=== PATIENT | male | born 1970 | race Caucasian/White ===

== ENCOUNTER 2017-01-05 13:51 | Emergency (ER) | payer OTHER ==
[~2017-01-05] VITALS: Wt 83.0 kg
[~2017-01-05 13:51] MED LIST: CYCL-319 PO
[2017-01-05] MEDS ORDERED: ACETAMINOPHEN 500 MG TAB PO STA (14:47)
[2017-01-05] MEDS ORDERED: IBUP-1542 PO (14:50)
[2017-01-05] MEDS ORDERED: D-ME473S2 PO (14:50)
--- NOTE | 2017-01-05 14:52 | ERD ---
ER Documentation Chief Complaint Chief Complaint FEVER X 1 DAY HPI This 46-year-old male presents with a one-day history of fever and cough. There is no history of vomiting or abdominal pain, diarrhea, neck stiffness, rashes. ROS All systems reviewed and are negative except as per history of present illness. Medications Home Meds Active Scripts Dextromethorphan Hb-Promethazine Hcl* (Promethazine DM* Syrup) 473 Ml Syrup, 5 ML PO Q6 Y for COUGH for 4 Days, ML Prov:MOON SMITH MD 01/05/17 Ibuprofen* (Motrin*) 600 Mg Tab, 600 MG PO Q6, #15 TAB Prov:MOON SMITH MD 01/05/17 Cyclobenzaprine Hcl* (Cyclobenzaprine Hcl*) 10 Mg Tablet, 10 MG PO TID, #15 TAB Prov:LYNDA ROB NP 03/10/15 Allergies Allergies: Coded Allergies: No Known Drug Allergies (Verified Allergy, Unknown, 03/09/15) PMhx/Soc History of Surgery: Yes (appendectomy) Anesthesia Reaction: No Hx Neurological Disorder: Yes (seizure) Hx Respiratory Disorders: No Hx Cardiac Disorders: No Hx Psychiatric Problems: No Hx Miscellaneous Medical Probl: No Hx Alcohol Use: No Hx Substance Use: No Hx Tobacco Use: No Smoking Status: Never smoker Physical Exam Vitals Vital Signs Date Time Temp Pulse Resp B/P Pulse Ox O2 Delivery O2 Flow Rate FiO2 01/05/17 13:54 98.9 89 18 124/72 99 Physical Exam Const: [], [id number], eating a banana. Head: Atraumatic Eyes: Normal Conjunctiva ENT: Normal External Ears, Nose and Mouth. TMs and oropharynx normal. Neck: Full range of motion..~ No meningismus. Resp: Clear to auscultation bilaterally. No rales or wheezing appreciated. Cardio: Regular rate and rhythm, no murmurs Abd: Soft, non tender, non distended. Normal bowel sounds Skin: No petechiae or rashes Back: No midline or flank tenderness Ext: No cyanosis, or edema Neur: Awake and alert Psych: Normal Mood and Affect Results 24 hrs Current Medications Medications (Trade) Dose Ordered Sig/Idris Route PRN Reason Start Time Stop Time Status Last Admin Dose Admin Acetaminophen (Tylenol Tab) 500 mg ONCE STAT PO 01/05/17 14:47 01/05/17 14:48 DC Procedures/MDM Presents with a one-day history of URI symptoms and essentially normal exam. Likely has a viral URI. Will treat with promethazine DM and ibuprofen and primary care follow-up and return precautions. The patient was stable with no new complaints during the ER course. Clinically, there is no current evidence to suggest meningitis, sepsis, acute abdomen, pneumonia, acute coronary syndrome , pulmonary embolism, or any other emergent condition appearing to require further evaluation or hospitalization. The patient should certainly return for any new or worsening symptoms per the aftercare instructions. They should otherwise follow-up with her primary care doctor for reevaluation this week. Departure Diagnosis: Primary Impression: Upper respiratory infection URI type: unspecified URI Qualified Code: J06.9 - Upper respiratory tract infection, unspecified type Condition: Stable Patient Instructions: Uri, Viral, No Abx (Adult) Additional Instructions: probablamente un virus que dura 2-4 valles. cheque otro demarco el proximo storm para mas simptomas- vomito, dolor, rashad, problemas con respirando, o con dietrich doctor primario. MOON SMITH MD Jan 05, 2017 14:52
== END 2017-01-05 15:03 | disposition home or self-care (01) ==
LOC: FTE 13:51
DX: J06.9 Acute upper respiratory infection, unspecified (principal)
CPT/HCPCS: Z7502; Z7610; 99283

== ENCOUNTER 2018-02-06 03:20 | Emergency (ER) | END 2018-02-06 05:28 | disposition home or self-care (01) ==

== ENCOUNTER 2018-03-24 00:33 | Emergency (ER) | payer OTHER ==
[~2018-03-24] VITALS: Ht 167.6 cm; Wt 81.8 kg
[~2018-03-24 00:33] MED LIST changes: -CYCL-319 PO; +CYCL10TA7 PO; +D-ME473S2 PO; +IBUP-1542 PO
[2018-03-24 00:36] VITALS: Ht 167.6 cm; Wt 81.8 kg
[2018-03-24] MEDS ORDERED: SOD CHLORIDE 0.9% 500 ML IV STA (01:09)
[2018-03-24] MEDS ORDERED: LEVETIRACETAM 1000 MG (PMX) 100 ML IVPB STA (01:09)
--- NOTE | 2018-03-24 01:56 | ERD ---
ER Documentation Chief Complaint Chief Complaint REGINA RACarter from home,sz,hx sz, on trileptal & Keppra HPI 48-year-old male brought in by rescue f from his domicile for a seizure. History of seizures. 1 minute tonic-clonic activity with no tongue biting no incontinence. Upon arrival patient lethargic but arousable and answers ques tions appropriately. His last breakthrough seizure was 6 months ago. ROS All systems reviewed and are negative except as per history of present illness. Medications Home Meds Active Scripts Dextromethorphan Hb-Promethazine Hcl* (Promethazine DM* Syrup) 473 Ml Syrup, 5 ML PO Q6 PRN for COUGH for 4 Days, ML Prov:MOON SMITH MD 01/05/17 Ibuprofen* (Motrin*) 600 Mg Tab, 600 MG PO Q6, #15 TAB Prov:MOON SMITH MD 01/05/17 Cyclobenzaprine Hcl* (Cyclobenzaprine Hcl*) 10 Mg Tablet, 10 MG PO TID, #15 TAB Prov:LYNDA ROB NP 03/10/15 Allergies Allergies: Coded Allergies: No Known Drug Allergies (Verified Allergy, Unknown, 03/09/15) PMhx/Soc History of Surgery: Yes (appendectomy) Anesthesia Reaction: No Hx Neurological Disorder: Yes (seizure) Hx Respiratory Disorders: No Hx Cardiac Disorders: No Hx Miscellaneous Medical Probl: No Hx Alcohol Use: No Hx Substance Use: No Hx Tobacco Use: No Physical Exam Vitals Vital Signs Date Temp Pulse Resp B/P (MAP) Pulse Ox O2 O2 Flow FiO2 Time Delivery Rate 03/24/18 98.2 93 18 123/65 95 00:36 (84) Physical Exam Const: No acute distress Head: Atraumatic Eyes: Normal Conjunctiva ENT: Normal External Ears, Nose and Mouth. Neck: Full range of motion. No meningismus. Resp: Clear to auscultation bilaterally Cardio: Regular rate and rhythm, no murmurs Abd: Soft, non tender, non distended. Normal bowel sounds Skin: No petechiae or rashes Back: No midline or flank tenderness Ext: No cyanosis, or edema Neur: Awake and alert Psych: Normal Mood and Affect Result Diagram: 03/24/18 0132 Results 24 hrs Laboratory Tests Test 03/24/18 01:30 03/24/18 01:32 Bedside Glucose 101 mg/dL White Blood Count 7.1 10^3/ul Red Blood Count 3.96 10^6/ul Hemoglobin 12.3 g/dl Hematocrit 35.6 % Mean Corpuscular Volume 89.9 fl Mean Corpuscular Hemoglobin 31.1 pg Mean Corpuscular Hemoglobin Concent 34.6 g/dl Red Cell Distribution Width 11.9 % Platelet Count 297 10^3/UL Mean Platelet Volume 8.7 fl Immature Granulocytes % 0.100 % Neutrophils % 74.4 % Lymphocytes % 12.8 % Monocytes % 8.8 % Eosinophils % 3.5 % Basophils % 0.4 % Nucleated Red Blood Cells % 0.0 /100WBC Immature Granulocytes # 0.010 10^3/ul Neutrophils # 5.3 10^3/ul Lymphocytes # 0.9 10^3/ul Monocytes # 0.6 10^3/ul Eosinophils # 0.3 10^3/ul Basophils # 0.0 10^3/ul Nucleated Red Blood Cells # 0.0 10^3/ul Current Medications Medications Dose Sig/Idris Start Time Status Last (Trade) Ordered Route PRN Stop Time Admin Dose Reason Admin Sodium 500 ml @ Q1H STAT 03/24/18 03/24/18 Chloride 500 mls/hr IV 01:09 01:39 03/24/18 02:08 100 ml @ ONCE STAT 03/24/18 DC 03/24/18 Levetiracetam 400 mls/hr IVPB 01:09 01:39 03/24/18 01:23 Procedures/MDM Medical decision makin-year-old male recurrent seizure disorder. Given Her here intravenously. Stable for outpatient management. Advised to follow-up with primary care physician. Return for any seizure-like activity via 911. Departure Diagnosis: Primary Impression: Seizure disorder Condition: Stable SAMSON KELLY Mar 24, 2018 01:56
[2018-03-24] MEDS ORDERED: IBUP-1542 PO (04:46)
[2018-03-24] MEDS ORDERED: FAMO-142 PO (05:05)
[2018-03-24] MEDS ORDERED: LEVE10006 PO (05:05)
[2018-03-24] MEDS ORDERED: OXCA600T30 PO (05:05)
[2018-03-24] MEDS: SOD CHLORIDE 0.9% 2,000 ML IV SCH ×2 (06:07→07:49)
[2018-03-24] MEDS ORDERED: SOD CHLORIDE 0.9% 1,000 ML IV STA (06:33)
[2018-03-24 07:49] VITALS: BP 111/60; PULSE 89; RESP 18
== END 2018-03-24 07:53 | disposition home or self-care (01) ==
LOC: E/R 00:33
DX: G40.909 Epilepsy, unspecified, not intractable, without status epilepticus (principal); R40.2122 Coma scale, eyes open, to pain, at arrival to emergency department; R40.2352 Coma scale, best motor response, localizes pain, at arrival to emergency department; R40.2232 Coma scale, best verbal response, inappropriate words, at arrival to emergency department
CPT/HCPCS: 36415; 70450; 80048; 82962; 85025; 96365; 96366; J1953; J7030; J7040; Z7502

== ENCOUNTER 2018-06-06 02:27 | Inpatient (IN) | payer OTHER ==
[~2018-06-06] VITALS: Ht 165.1 cm; Wt 80.2 kg
[~2018-06-06 02:27] MED LIST changes: +FAMO-142 PO; +LEVE10006 PO; +LORAZEPAM 2 MG INJ ONE; +OXCA600T30 PO
[2018-06-06] MEDS ORDERED: LORAZEPAM 2 MG INJ ONE (02:32)
[2018-06-06] MEDS ORDERED: LEVETIRACETAM 1000 MG (PMX) 100 ML IVPB ONE (03:00)
[2018-06-06] MEDS ORDERED: LORAZEPAM 2 MG INJ IV ONE ×2 (03:00)
[2018-06-06] MEDS ORDERED: LORAZEPAM 2 MG INJ IM ONE (03:00)
[2018-06-06] MEDS ORDERED: PIPER-TAZO 3.375 GM IV (PMX) 100 ML IVPB ONE (05:30)
[2018-06-06] MEDS ORDERED: ONDANSETRON 4 MG INJ IV PRN (06:00)
[2018-06-06] MEDS ORDERED: NACL 0.9% 3 ML SYG IV SCH (06:00)
[2018-06-06] MEDS ORDERED: ACETAMINOPHEN 325 MG TAB PO PRN (06:00)
[2018-06-06] MEDS ORDERED: LORAZEPAM 2 MG INJ IV PRN (06:00)
[2018-06-06] MEDS ORDERED: AMPICILLIN/SULB 3 GM/NS (PMX) 100 ML IVPB SCH (06:00)
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
[2018-06-06] MEDS: SOD CHLORIDE 0.9% 1,000 ML IV SCH ×2 (06:23→18:03)
[2018-06-06] MEDS: OXCARBAZEPINE 300 MG TAB PO SCH ×2 (09:00→23:21)
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
[2018-06-06] MEDS: AMPICILLIN/SULB 3 GM/NS (PMX) 100 ML IVPB SCH ×3 (11:25→23:21)
[2018-06-06 12:26] VITALS: BP 126/65; PULSE 66; RESP 18
[2018-06-06 12:30] VITALS: PULSE 62
[2018-06-06 13:24] VITALS: Ht 165.1 cm; Wt 80.2 kg
[2018-06-06] MEDS ORDERED: LEVETIRACETAM 1000 MG (PMX) 100 ML IVPB SCH (14:00)
[2018-06-06 15:21] VITALS: BP 104/60; PULSE 67; RESP 19
[2018-06-06 16:01] VITALS: PULSE 85
[2018-06-06 19:10] VITALS: BP 108/66; PULSE 64; RESP 19
[2018-06-06 20:00] VITALS: PULSE 67
[2018-06-06] MEDS: LEVETIRACETAM 750 MG TAB PO SCH (20:57)
[2018-06-07] VITALS (12 sets, daily range): BP systolic 95–123; BP diastolic 56–65; PULSE 43–79; RESP 18–19
[2018-06-07] MEDS: AMPICILLIN/SULB 3 GM/NS (PMX) 100 ML IVPB SCH ×3 (05:51→18:23)
[2018-06-07] MEDS: LEVETIRACETAM 750 MG TAB PO SCH ×2 (08:57→20:49)
[2018-06-07] MEDS: OXCARBAZEPINE 300 MG TAB PO SCH ×2 (08:57→20:38)
[2018-06-07] MEDS ORDERED: POTASSIUM CHLORIDE (SR) 20 MEQ TAB PO STA (10:00)
--- NOTE | 2018-06-07 10:07 | CONS ---
Assessment/Plan Assessment/Plan Hospital Course 48 M c/ reported Hx of epilepsy and depression, who is admitted following a generalized convulsion. Patient reports medication compliance and denies recent ETOH use.. Head CT is without obvious acute intracranial pathology...though most notable for presumed shrapnel and an arachnoid cyst.. CXR is suspicious for possible aspiration pneumonia.. UA/UDS neg Na/Ca/Gluc/Mg/phos OK Keppra and Trileptal levels are in process to corroborate medication compliance.. P: Continue Trileptal per ops for now; continue increased Keppra, 1.5g po bid. inde finitely Ativan iv prn prolonged seizure or cluster PT/OT/ST as necessary Other management and supportive care per primary Will follow clinically Consultation Date/Type/Reason Admit Date/Time Jun 06, 2018 at 05:23 Type of Consult Neurology Reason for Consultation seizure Requesting Provider: CHARLIE LOCK Date/Time of Note DATE: 06/07/18 TIME: 10:05 24 HR Interval Summary Free Text/Dictation Continues acute care Exam Vital Signs Vitals Vital Signs Date Temp Pulse Resp B/P (MAP) Pulse Ox O2 O2 Flow FiO2 Time Delivery Rate 06/07/18 98.4 78 18 101/56 96 07:33 (71) 06/06/18 Room Air 11:44 Nasal Cannula 06/06/18 3.0 06:23 Intake and Output 06/06/18 06/06/18 06/07/18 1414:59 22:59 06:59 IntakeIntake Total 500 ml OutputOutput Total 900 ml 800 ml BalanceBalance -900 ml -300 ml Exam PE: Gen Appearance: No Apparent Distress HEENT: Normocephalic Cardiovascular: Regular rate Abdomen: Soft Extremities: Dry NE: The patient was alert and oriented. Language was normal. Fund of knowledge was normal. Pupils were equal and reactive to light. There was no afferent pupillary defect. Visual jacob were normal. Funduscopic examination was limited. Extra-ocular movements were full. Ptosis was absent. There was no nystagmus. Facial sensation was normal. Face was symmetric with normal strength. Hearing was intact. Palate movements were normal. Neck strength was normal. There was normal tongue bulk and speed of movement. Tone was normal. Muscle bulk was normal. I did not see fasciculations. Arms and legs were strong. Vibration sensation was normal. Temperature and pinprick sensation was normal. Rapid alternating movements were normal. There was no dysmetria. There was no intention tremor. Gait was deferred due to bedrest. Arm and leg reflexes were 2+ and symmetric. Metcalf's sign was absent. Plantar responses were flexor. NOLA BOSWELL Jun 07, 2018 10:07
--- NOTE | 2018-06-07 10:15 | PN ---
Date/Time of Note Date/Time of Note DATE: 06/07/18 TIME: 10:13 Assessment/Plan VTE Prophylaxis Risk score (from Ns)>0 risk: 3 SCD applied (from Ns): Yes Pharmacological prophylaxis: heparin Lines/Catheters IV Catheter Type (from [facility]): Saline Lock Urinary Cath still in place: No Assessment/Plan Problems: (1) Recurrent seizures Onset Date: ~ 06/2010 Status: Chronic Comment: Patient is back on medication therapy and since he has been receiving her in the hospital no further seizures in a short timeframe. Appreciate neurology input. Due to the aspiration pneumonia he will be here at least 1 more day (2) Aspiration pneumonia Status: Acute Comment: Abnormal chest x-ray. He has not had fevers and his white blood cell count is holding on the antibiotics. We will give 1 dose of azithromycin to help hold him over Qualifiers: Aspiration pneumonia type: unspecified Laterality: left Lung location: upper lobe of lung Qualified Codes: J69.0 - Pneumonitis due to inhalation of food and vomit Result Diagram: 06/07/18 0504 06/07/18 0504 Results 24hrs Laboratory Tests Test 06/06/18 16:30 06/07/18 05:04 Urine Color STRAW Urine Clarity CLEAR Urine pH 7.0 Urine Specific [place] 1.010 Urine Ketones NEGATIVE Urine Nitrite NEGATIVE Urine Bilirubin NEGATIVE Urine Urobilinogen NEGATIVE Urine Leukocyte Esterase NEGATIVE Urine Hemoglobin NEGATIVE Urine Glucose NEGATIVE Urine Total Protein NEGATIVE White Blood Count 5.3 # Red Blood Count 4.32 L Hemoglobin 13.3 L Hematocrit 38.0 L Mean Corpuscular Volume 88.0 Mean Corpuscular Hemoglobin 30.8 Mean Corpuscular Hemoglobin Concent 35.0 Red Cell Distribution Width 13.1 Platelet Count 186 Mean Platelet Volume 9.7 Immature Granulocytes % 0.200 Neutrophils % 51.8 Lymphocytes % 38.5 Monocytes % 8.0 Eosinophils % 1.1 Basophils % 0.4 Nucleated Red Blood Cells % 0.0 Immature Granulocytes # 0.010 Neutrophils # 2.7 Lymphocytes # 2.0 Monocytes # 0.4 Eosinophils # 0.1 Basophils # 0.0 Nucleated Red Blood Cells # 0.0 Sodium Level 141 Potassium Level 3.4 L Chloride Level 108 Carbon Dioxide Level 25 # Anion Gap 8 # Blood Urea Nitrogen 10 Creatinine 0.71 Est Glomerular Filtrat Rate mL/min > 60 Glucose Level 89 Hemoglobin A1c 4.9 Calcium Level 8.6 Magnesium Level 2.1 Total Bilirubin 0.4 Direct Bilirubin 0.00 Indirect Bilirubin 0.4 Aspartate Amino Transf (AST/SGOT) 20 Alanine Aminotransferase (ALT/SGPT) 20 Alkaline Phosphatase 70 Total Protein 6.6 Albumin 3.6 Globulin 3.00 Albumin/Globulin Ratio 1.20 Triglycerides Level 87 Cholesterol Level 163 LDL Cholesterol, Calculated 94 HDL Cholesterol 52 Cholesterol/HDL Ratio 3.1 Thyroid Stimulating Hormone (TSH) 1.670 Subjective 24 Hr Interval Summary Free Text/Dictation Patient had another seizure in the emergency room before coming up to the floor and was postictal. At this time he reports he is doing well denies any cough wheezing shortness of breath or fevers Constitutional: no complaints Respiratory: no complaints Cardiovascular: no complaints Gastrointestinal: no complaints Exam/Review of Systems Exam Vitals Vital Signs Date Temp Pulse Resp B/P (MAP) Pulse Ox O2 O2 Flow FiO2 Time Delivery Rate 06/07/18 52 08:01 06/07/18 98.4 18 101/56 96 07:33 (71) 06/06/18 Room Air 11:44 Nasal Cannula 06/06/18 3.0 06:23 Intake and Output 06/06/18 06/06/18 06/07/18 1515:00 23:00 07:00 IntakeIntake Total 500 ml OutputOutput Total 900 ml 800 ml BalanceBalance -900 ml -300 ml Constitutional: alert, oriented Respiratory: clear to auscultation, normal air movement Cardiovascular: regular rate and rhythm, nl pulses Gastrointestinal: soft, nl liver, spleen, non-tender Results Results 24hrs Laboratory Tests Test 06/06/18 16:30 06/07/18 05:04 Urine Color STRAW Urine Clarity CLEAR Urine pH 7.0 Urine Specific [place] 1.010 Urine Ketones NEGATIVE Urine Nitrite NEGATIVE Urine Bilirubin NEGATIVE Urine Urobilinogen NEGATIVE Urine Leukocyte Esterase NEGATIVE Urine Hemoglobin NEGATIVE Urine Glucose NEGATIVE Urine Total Protein NEGATIVE White Blood Count 5.3 # Red Blood Count 4.32 L Hemoglobin 13.3 L Hematocrit 38.0 L Mean Corpuscular Volume 88.0 Mean Corpuscular Hemoglobin 30.8 Mean Corpuscular Hemoglobin Concent 35.0 Red Cell Distribution Width 13.1 Platelet Count 186 Mean Platelet Volume 9.7 Immature Granulocytes % 0.200 Neutrophils % 51.8 Lymphocytes % 38.5 Monocytes % 8.0 Eosinophils % 1.1 Basophils % 0.4 Nucleated Red Blood Cells % 0.0 Immature Granulocytes # 0.010 Neutrophils # 2.7 Lymphocytes # 2.0 Monocytes # 0.4 Eosinophils # 0.1 Basophils # 0.0 Nucleated Red Blood Cells # 0.0 Sodium Level 141 Potassium Level 3.4 L Chloride Level 108 Carbon Dioxide Level 25 # Anion Gap 8 # Blood Urea Nitrogen 10 Creatinine 0.71 Est Glomerular Filtrat Rate mL/min > 60 Glucose Level 89 Hemoglobin A1c 4.9 Calcium Level 8.6 Magnesium Level 2.1 Total Bilirubin 0.4 Direct Bilirubin 0.00 Indirect Bilirubin 0.4 Aspartate Amino Transf (AST/SGOT) 20 Alanine Aminotransferase (ALT/SGPT) 20 Alkaline Phosphatase 70 Total Protein 6.6 Albumin 3.6 Globulin 3.00 Albumin/Globulin Ratio 1.20 Triglycerides Level 87 Cholesterol Level 163 LDL Cholesterol, Calculated 94 HDL Cholesterol 52 Cholesterol/HDL Ratio 3.1 Thyroid Stimulating Hormone (TSH) 1.670 Medications Medication Current Medications Oxcarbazepine (Trileptal) 600 mg BID PO Last administered on 06/07/18at 08:57; Admin Dose 600 MG; Start 06/06/18 at 09:00 Lorazepam (Ativan) 2 mg Q2H PRN IV SEIZURES; Start 06/06/18 at 06:00 Sodium Chloride 1,000 ml @ 70 mls/hr [id number] IV Last administered on 06/06/18at 18:03; Admin Dose 70 MLS/HR; Start 06/06/18 at 05:45 IV Flush (NS 3 ml) 3 ml PER PROTOCOL IV ; Start 06/06/18 at 06:00 Ondansetron HCl (Zofran Inj) 4 mg Q6H PRN IV NAUSEA/VOMITING; Start 06/06/18 at 06:00 Acetaminophen (Tylenol Tab) 650 mg Q6H PRN PO .PAIN 1-3 OR TEMP; Start 06/06/18 at 06:00 Ampicillin Sodium/ Sulbactam Sodium 100 ml @ 100 mls/hr Q6 IVPB Last administered on 06/07/18at 05:51; Admin Dose 100 MLS/HR; Start 06/06/18 at 12:00 Levetiracetam (Keppra) 1,500 mg BID PO Last administered on 06/07/18at 08:57; Admin Dose 1,500 MG; Start 06/06/18 at 21:00 OVI SHARPE MD Jun 07, 2018 10:15
[2018-06-07] MEDS ORDERED: AZITHROMYCIN 500 MG TAB PO ONE (10:30)
[2018-06-07] MEDS: SOD CHLORIDE 0.9% 1,000 ML IV SCH (16:06)
[2018-06-08] MEDS: SOD CHLORIDE 0.9% 1,000 ML IV SCH ×4 (00:39→23:25)
[2018-06-08] MEDS: AMPICILLIN/SULB 3 GM/NS (PMX) 100 ML IVPB SCH ×3 (01:15→12:19)
[2018-06-08 08:03] VITALS: BP 101/59; PULSE 58; RESP 18
[2018-06-08] MEDS: LEVETIRACETAM 750 MG TAB PO SCH ×2 (08:44→21:14)
[2018-06-08] MEDS: OXCARBAZEPINE 300 MG TAB PO SCH ×2 (08:45→21:14)
--- NOTE | 2018-06-08 12:33 | CONS ---
Assessment/Plan Assessment/Plan Hospital Course 48 M c/ reported Hx of epilepsy and depression, who is admitted following a generalized convulsion. Patient reports medication compliance and denies recent ETOH use.. Head CT is without obvious acute intracranial pathology...though most notable for presumed shrapnel and an arachnoid cyst.. CXR is suspicious for possible aspiration pneumonia.. UA/UDS neg Na/Ca/Gluc/Mg/phos OK Keppra and Trileptal levels are in process to corroborate medication compliance.. P: Continue Trileptal per ops for now; continue Keppra, 1.5g po bid indefinitely Ativan iv prn prolonged seizure or cluster PT/OT/ST as necessary Other management and supportive care per primary Will follow clinically Consultation Date/Type/Reason Admit Date/Time Jun 06, 2018 at 05:23 Type of Consult Neurology Requesting Provider: CHARLIE LOCK Date/Time of Note DATE: 06/08/18 TIME: 12:33 Exam Vital Signs Vitals Vital Signs Date Temp Pulse Resp B/P (MAP) Pulse Ox O2 O2 Flow FiO2 Time Delivery Rate 06/08/18 98.9 58 18 101/59 97 Room Air 08:03 (73) 06/06/18 3.0 06:23 Intake and Output 06/07/18 06/07/18 06/08/18 1515:00 23:00 07:00 IntakeIntake Total 170 ml 1030 ml BalanceBalance 170 ml 1030 ml YASMINE MENDEZ [employer] Jun 08, 2018 12:33
--- NOTE | 2018-06-08 13:03 | CONS ---
Assessment/Plan Assessment/Plan Hospital Course 48 M c/ reported Hx of epilepsy and depression, who is admitted following a generalized convulsion. Patient reports medication compliance and denies recent ETOH use.. Head CT is without obvious acute intracranial pathology...though most notable for presumed shrapnel and an arachnoid cyst.. CXR is suspicious for possible aspiration pneumonia.. UA/UDS neg Na/Ca/Gluc/Mg/phos OK Keppra and Trileptal levels are in process to corroborate medication compliance.. P: Continue Trileptal per ops for now; continue increased Keppra, 1.5g po bid. inde finitely Ativan iv prn prolonged seizure or cluster PT/OT/ST as necessary Other management and supportive care per primary Will follow clinically Consultation Date/Type/Reason Admit Date/Time Jun 06, 2018 at 05:23 Type of Consult Neurology Reason for Consultation seizure Requesting Provider: CHARLIE LOCK Date/Time of Note DATE: 06/08/18 TIME: 13:02 24 HR Interval Summary Free Text/Dictation Continues acute care Exam Vital Signs Vitals Vital Signs Date Temp Pulse Resp B/P (MAP) Pulse Ox O2 O2 Flow FiO2 Time Delivery Rate 06/08/18 98.9 58 18 101/59 97 Room Air 08:03 (73) 06/06/18 3.0 06:23 Intake and Output 06/07/18 06/07/18 06/08/18 1515:00 23:00 07:00 IntakeIntake Total 170 ml 1030 ml BalanceBalance 170 ml 1030 ml Exam PE: Gen Appearance: No Apparent Distress HEENT: Normocephalic Cardiovascular: Regular rate Abdomen: Soft Extremities: Dry NE: The patient was asleep, though arousable to voice; oriented. Language was normal. Fund of knowledge was normal. Pupils were equal and reactive to light. There was no afferent pupillary defect. Visual jacob were normal. Funduscopic examination was limited. Extra-ocular movements were full. Ptosis was absent. There was no nystagmus. Facial sensation was normal. Face was symmetric with normal strength. Hearing was intact. Palate movements were normal. Neck strength was normal. There was normal tongue bulk and speed of movement. Tone was normal. Muscle bulk was normal. I did not see fasciculations. Arms and legs were strong. Vibration sensation was normal. Temperature and pinprick sensation was normal. Rapid alternating movements were normal. There was no dysmetria. There was no intention tremor. Gait was deferred due to bedrest. Arm and leg reflexes were 2+ and symmetric. Metcalf's sign was absent. Plantar responses were flexor. NLOA BOSWELL Jun 08, 2018 13:03 YASMINE MENDEZ NP Jun 08, 2018 14:22
[2018-06-08 14:01] VITALS: BP 109/58; PULSE 67; RESP 16
--- NOTE | 2018-06-08 18:44 | PN ---
Date/Time of Note Date/Time of Note DATE: 06/08/18 TIME: 18:44 Objective Vitals Vital Signs Date Temp Pulse Resp B/P (MAP) Pulse Ox O2 O2 Flow FiO2 Time Delivery Rate 06/08/18 98.8 67 16 109/58 94 Room Air 14:01 (75) 06/06/18 3.0 06:23 Intake and Output 06/07/18 06/07/18 06/08/18 1515:00 23:00 07:00 IntakeIntake Total 170 ml 1030 ml BalanceBalance 170 ml 1030 ml Results Result Diagram: 06/07/18 0504 06/08/18 0502 Medications Medications Current Medications Oxcarbazepine (Trileptal) 600 mg BID PO Last administered on 06/08/18at 08:45; Admin Dose 600 MG; Start 06/06/18 at 09:00 Lorazepam (Ativan) 2 mg Q2H PRN IV SEIZURES; Start 06/06/18 at 06:00 Sodium Chloride 1,000 ml @ 70 mls/hr [id number] IV Last administered on 06/08/18at 06:16; Admin Dose 70 MLS/HR; Start 06/06/18 at 05:45 IV Flush (NS 3 ml) 3 ml PER PROTOCOL IV ; Start 06/06/18 at 06:00 Ondansetron HCl (Zofran Inj) 4 mg Q6H PRN IV NAUSEA/VOMITING; Start 06/06/18 at 06:00 Acetaminophen (Tylenol Tab) 650 mg Q6H PRN PO .PAIN 1-3 OR TEMP; Start 06/06/18 at 06:00 Levetiracetam (Keppra) 1,500 mg BID PO Last administered on 06/08/18at 08:44; Admin Dose 1,500 MG; Start 06/06/18 at 21:00 Amoxicillin/ Clavulanate Potassium (Augmentin) 875 mg BID PO ; Start 06/08/18 at 21:00 VTE Prophylaxis Risk score (from Nsg)>0 risk: 3 SCD applied (from Nsg): Yes Lines/Catheters IV Catheter Type: Ye in Place: No Assessment/Plan Hospital Course Subjective Patient still complaining of neck discomfort was present on admission, no dis comfort with swallowing or eating however he said it is painful but does not impede airway or swallowing Objective Physical exam General: Patient is laying in bed and answers questions appropriately Mentation: Patient is alert and oriented 4, Head: Normocephalic atraumatic Eyes: EOMI, pupils reactive to light Neck: Supple, mildly tender, midline Respiratory: Clear to auscultation bilaterally Cardiovascular: regular rate, no obvious murmurs Gastrointestinal: non-tender to palpation, bowel sounds heard. Neurological: Moves all extremities spontaneously Skin: No new skin lesions Assessment and plan Recurrent seizures -Neurology on board, continue medications per neurology -As needed Ativan Aspiration pneumonia -Switching to oral medication, will use Augmentin as patient has been on Unasyn Neck pain -Appears more lymphadenopathy or other issues secondary to seizure and aspiration pneumonia as pain appears to be limited to the superficial however will get CT of the neck to ensure no other issues Disposition -Await results of neck CT and assess tolerance on oral antibiotics before discharge. FLORNIDA MONK Jun 08, 2018 18:44
[2018-06-08 20:00] VITALS: BP 100/59; PULSE 63; RESP 18
[2018-06-08] MEDS: AMOXICILLIN/CLAV 875 MG TAB PO SCH (21:14)
[2018-06-09 02:00] VITALS: BP 108/64; PULSE 52; RESP 18
[2018-06-09] MEDS: SOD CHLORIDE 0.9% 1,000 ML IV SCH ×2 (05:15→15:18)
[2018-06-09 07:32] VITALS: BP 104/62; PULSE 51; RESP 16
[2018-06-09] MEDS: LEVETIRACETAM 750 MG TAB PO SCH ×2 (08:29→20:59)
[2018-06-09] MEDS: OXCARBAZEPINE 300 MG TAB PO SCH ×2 (08:29→20:59)
[2018-06-09] MEDS: AMOXICILLIN/CLAV 875 MG TAB PO SCH ×2 (08:29→20:59)
--- NOTE | 2018-06-09 10:38 | CONS ---
Assessment/Plan Assessment/Plan Hospital Course 48 M c/ reported Hx of epilepsy and depression, who is admitted following a generalized convulsion. Patient reports medication compliance and denies recent ETOH use.. Head CT is without obvious acute intracranial pathology...though most notable for presumed shrapnel and an arachnoid cyst.. CXR is suspicious for possible aspiration pneumonia.. UA/UDS neg Na/Ca/Gluc/Mg/phos OK Keppra and Trileptal levels are in process to corroborate medication compliance.. P: Continue Trileptal per ops for now; continue increased Keppra, 1.5g po bid. inde finitely Ativan iv prn prolonged seizure or cluster PT/OT/ST as necessary Pain management and supportive care per primary Will follow clinically Consultation Date/Type/Reason Admit Date/Time Jun 06, 2018 at 05:23 Type of Consult Neurology Reason for Consultation seizure Requesting Provider: CHARLIE LOCK Date/Time of Note DATE: 06/09/18 TIME: 10:37 24 HR Interval Summary Free Text/Dictation Continues acute care Exam Vital Signs Vitals Vital Signs Date Temp Pulse Resp B/P (MAP) Pulse Ox O2 O2 Flow FiO2 Time Delivery Rate 06/09/18 97.7 51 16 104/62 95 Room Air 07:32 (76) 06/06/18 3.0 06:23 Intake and Output 06/08/18 06/08/18 06/09/18 1515:00 23:00 07:00 IntakeIntake Total 200 ml 560 ml 790 ml OutputOutput Total 500 ml BalanceBalance -300 ml 560 ml 790 ml Exam PE: Gen Appearance: No Apparent Distress HEENT: Normocephalic Cardiovascular: Regular rate Abdomen: Soft Extremities: Dry NE: The patient was alert and grossly oriented. Language was normal. Fund of knowledge was normal. Pupils were equal and reactive to light. There was no afferent pupillary defect. Visual jacob were normal. Funduscopic examination was limited. Extra-ocular movements were full. Ptosis was absent. There was no nystagmus. Facial sensation was normal. Face was symmetric with normal strength. Hearing was intact. Palate movements were normal. Neck strength was normal. There was normal tongue bulk and speed of movement. Tone was normal. Muscle bulk was normal. I did not see fasciculations. Arms and legs were strong. Vibration sensation was normal. Temperature and pinprick sensation was normal. Rapid alternating movements were normal. There was no dysmetria. There was no intention tremor. Gait was deferred due to bedrest. Arm and leg reflexes were 2+ and symmetric. Metcalf's sign was absent. Plantar responses were flexor. NOLA BOSWELL Jun 09, 2018 10:38 YASMINE MENDEZ NP Jun 09, 2018 14:15
--- NOTE | 2018-06-09 11:10 | PN ---
Date/Time of Note Date/Time of Note DATE: 06/09/18 TIME: 11:07 Assessment/Plan VTE Prophylaxis Risk score (from Ns)>0 risk: 0 SCD applied (from [facility]): Yes Pharmacological prophylaxis: other Pharm contraindication: other Lines/Catheters IV Catheter Type (from [facility]): Peripheral IV Urinary Cath still in place: No Assessment/Plan Assessment/Plan 1. Recurrent seizures, increased keppra, no seizure activity after admission 2. Aspiration pneumonia, stable, on augmentin 3. Major depression, follow up with PCP to start treatment 4. D/C plan for tomorrow if stable Result Diagram: 06/09/18 0610 06/09/18 0610 Results 24hrs Laboratory Tests Test 06/09/18 06:10 White Blood Count 4.8 Red Blood Count 4.34 L Hemoglobin 13.3 L Hematocrit 38.0 L Mean Corpuscular Volume 87.6 Mean Corpuscular Hemoglobin 30.6 Mean Corpuscular Hemoglobin Concent 35.0 Red Cell Distribution Width 12.8 Platelet Count 179 Mean Platelet Volume 9.5 Immature Granulocytes % 0.200 Neutrophils % 39.1 Lymphocytes % 50.1 Monocytes % 8.5 Eosinophils % 1.7 Basophils % 0.4 Nucleated Red Blood Cells % 0.0 Immature Granulocytes # 0.010 Neutrophils # 1.9 Lymphocytes # 2.4 Monocytes # 0.4 Eosinophils # 0.1 Basophils # 0.0 Nucleated Red Blood Cells # 0.0 Sodium Level 140 Potassium Level 3.7 Chloride Level 110 Carbon Dioxide Level 23 Anion Gap 7 Blood Urea Nitrogen 10 Creatinine 0.75 Est Glomerular Filtrat Rate mL/min > 60 Glucose Level 96 Calcium Level 8.8 Phosphorus Level 4.0 Magnesium Level 2.0 Subjective 24 Hr Interval Summary Free Text/Dictation no seizure activity, alert and oriented Exam/Review of Systems Exam Vitals Vital Signs Date Temp Pulse Resp B/P (MAP) Pulse Ox O2 O2 Flow FiO2 Time Delivery Rate 06/09/18 97.7 51 16 104/62 95 Room Air 07:32 (76) 06/06/18 3.0 06:23 Intake and Output 06/08/18 06/08/18 06/09/18 1515:00 23:00 07:00 IntakeIntake Total 200 ml 560 ml 790 ml OutputOutput Total 500 ml BalanceBalance -300 ml 560 ml 790 ml Constitutional: alert, oriented, well developed Head: normocephalic, atraumatic Eyes: nl conjunctiva, EOMI, nl lids, PERRL ENMT: nl external ears & nose, nl lips & teeth, nl nasal mucosa & septum, mucosa pink and moist Neck: supple, non-tender Respiratory: clear to auscultation, normal air movement; No congested cough, No crackles/rales, No diminished breath sounds, No interc ostal retraction, No labored breathing, No respirations, No tactile fremitus, No wheezing, No other Cardiovascular: regular rate and rhythm, nl pulses; No bruits, No diastolic murmur, No edema, No gallop, No irregular rhythm, No jugular venous distention (JVD), No murmurs/extra sounds, No rub, No systolic murmur, No S3, No S4, No other Gastrointestinal: soft, nl liver, spleen, non-tender Musculoskeletal: nl extremities to inspection Extremities: normal pulses; No calf tenderness, No cyanosis, No clubbing, No edema, No pitting pedal edema, No palpable cord, No tenderness, No other Neurological: GUIDE DOMESTIC TOUR II-XII intact, nl mental status, nl speech, nl strength Results Results 24hrs Laboratory Tests Test 06/09/18 06:10 White Blood Count 4.8 Red Blood Count 4.34 L Hemoglobin 13.3 L Hematocrit 38.0 L Mean Corpuscular Volume 87.6 Mean Corpuscular Hemoglobin 30.6 Mean Corpuscular Hemoglobin Concent 35.0 Red Cell Distribution Width 12.8 Platelet Count 179 Mean Platelet Volume 9.5 Immature Granulocytes % 0.200 Neutrophils % 39.1 Lymphocytes % 50.1 Monocytes % 8.5 Eosinophils % 1.7 Basophils % 0.4 Nucleated Red Blood Cells % 0.0 Immature Granulocytes # 0.010 Neutrophils # 1.9 Lymphocytes # 2.4 Monocytes # 0.4 Eosinophils # 0.1 Basophils # 0.0 Nucleated Red Blood Cells # 0.0 Sodium Level 140 Potassium Level 3.7 Chloride Level 110 Carbon Dioxide Level 23 Anion Gap 7 Blood Urea Nitrogen 10 Creatinine 0.75 Est Glomerular Filtrat Rate mL/min > 60 Glucose Level 96 Calcium Level 8.8 Phosphorus Level 4.0 Magnesium Level 2.0 Medications Medication Current Medications Oxcarbazepine (Trileptal) 600 mg BID PO Last administered on 4/9/19at 08:29; Admin Dose 600 MG; Start 06/06/18 at 09:00 Lorazepam (Ativan) 2 mg Q2H PRN IV SEIZURES; Start 06/06/18 at 06:00 Sodium Chloride 1,000 ml @ 70 mls/hr [id number] IV Last administered on 06/08/18at 23:25; Admin Dose 70 MLS/HR; Start 06/06/18 at 05:45 IV Flush (NS 3 ml) 3 ml PER PROTOCOL IV ; Start 06/06/18 at 06:00 Ondansetron HCl (Zofran Inj) 4 mg Q6H PRN IV NAUSEA/VOMITING; Start 06/06/18 at 06:00 Acetaminophen (Tylenol Tab) 650 mg Q6H PRN PO .PAIN 1-3 OR TEMP; Start 06/06/18 at 06:00 Levetiracetam (Keppra) 1,500 mg BID PO Last administered on 06/09/18 08:29; Admin Dose 1,500 MG; Start 06/06/18 at 21:00 Amoxicillin/ Clavulanate Potassium (Augmentin) 875 mg BID PO Last administered on 06/09/18 08:29; Admin Dose 875 MG; Start 06/08/18 at 21:00 CARMENZA NIELSON MD Jun 09, 2018 11:10
[2018-06-09 14:19] VITALS: BP 97/52; PULSE 61; RESP 16
[2018-06-09 20:25] VITALS: BP 104/59; PULSE 58; RESP 18
[2018-06-10 02:00] VITALS: BP 97/55; PULSE 58; RESP 19
[2018-06-10 07:51] VITALS: BP 109/65; PULSE 47; RESP 16
[2018-06-10] MEDS: LEVETIRACETAM 750 MG TAB PO SCH (08:42)
[2018-06-10] MEDS: AMOXICILLIN/CLAV 875 MG TAB PO SCH (08:42)
[2018-06-10] MEDS: SOD CHLORIDE 0.9% 1,000 ML IV SCH (09:51)
[2018-06-10] MEDS: OXCARBAZEPINE 300 MG TAB PO SCH (10:29)
--- NOTE | 2018-06-10 11:32 | CONS ---
Assessment/Plan Assessment/Plan Hospital Course 48 M c/ reported Hx of epilepsy and depression, who is admitted following a generalized convulsion. Patient reports medication compliance and denies recent ETOH use.. Head CT is without obvious acute intracranial pathology...though most notable for presumed shrapnel and an arachnoid cyst.. CXR is suspicious for possible aspiration pneumonia.. UA/UDS neg Na/Ca/Gluc/Mg/phos OK Keppra level came back within therapeutic range, corroborating medication compliance.. P: Continue Trileptal per ops for now; continue increased Keppra, 1.5g po bid. indefinitely Ativan iv prn prolonged seizure or cluster PT/OT/ST as necessary Pain management and supportive care per primary Will follow clinically Consultation Date/Type/Reason Admit Date/Time Jun 06, 2018 at 05:23 Type of Consult Neurology Reason for Consultation seizure Requesting Provider: CHARLIE LOCK Date/Time of Note DATE: 06/10/18 TIME: 11:30 24 HR Interval Summary Free Text/Dictation Continues acute care. No new neurologic complaints. Exam Vital Signs Vitals Vital Signs Date Temp Pulse Resp B/P (MAP) Pulse Ox O2 O2 Flow FiO2 Time Delivery Rate 06/10/18 97.3 47 16 109/65 96 07:51 (80) 06/09/18 Room Air 20:25 Intake and Output 06/09/18 06/09/18 06/10/18 1515:00 23:00 07:00 IntakeIntake Total 800 ml 700 ml OutputOutput Total 275 ml BalanceBalance -275 ml 800 ml 700 ml NOLA BOSWELL Jun 10, 2018 11:32
[2018-06-10] MEDS ORDERED: LEVE750T70 PO (12:28)
[2018-06-10] MEDS ORDERED: AMOX1TAB10 PO (12:28)
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
[2018-06-10 13:41] VITALS: BP 124/74; PULSE 75; RESP 16
[2018-06-10 19:33] VITALS: BP 117/65; PULSE 63; RESP 18
== END 2018-06-10 19:40 | disposition home or self-care (01) | DRG 100 ==
LOC: E/R 02:27 → 6WM 05:23 → 5EC 06-07 15:13
PROVIDERS: ADMIT Family Medicine; ATTEND Internal Medicine
DX: G40.909 Epilepsy, unspecified, not intractable, without status epilepticus (principal); J69.0 Pneumonitis due to inhalation of food and vomit; F32.9 Major depressive disorder, single episode, unspecified
CPT/HCPCS: 36415; 70450; 70490; 71045; 72125; 80048; 80053; 80061; 80177; 80307; 81003; 82962; 83036; 83735; 84100; 84443; 85025; 86803; 87086; 87340; 96372; 96374; 96375; J0295; J1953; J2060; J2543; J7030

== ENCOUNTER 2018-07-25 16:59 | Emergency (ER) | payer OTHER ==
[~2018-07-25] VITALS: Wt 105.0 kg
[~2018-07-25 16:59] MED LIST changes: +AMOX1TAB10 PO; -CYCL10TA7 PO; -D-ME473S2 PO; -FAMO-142 PO; -IBUP-1542 PO; -LEVE10006 PO; +LEVE750T70 PO; -LORAZEPAM 2 MG INJ ONE
[2018-07-25] MEDS ORDERED: ACETAMINOPHEN 325 MG TAB PO ONE (17:30)
[2018-07-25] MEDS ORDERED: LORAZEPAM 1 MG TAB PO ONE (17:30)
[2018-07-25 17:33] VITALS: BP 122/70; PULSE 82; RESP 18
--- NOTE | 2018-07-25 17:37 | ERD ---
ER Documentation Chief Complaint Chief Complaint SEIZURE 30 MINS AGO; ON SEIZURE MEDS HPI During the patient's encounter translation services were utilized Language: Romanian Source: Video This is a 48-year-old male with a known history of seizure disorder currently taking Keppra and oxcarbazepine who presents with a breakthrough seizure approximate 1-1/2 to 2 hours ago. The patient had a witnessed generalized tonic-clonic seizure in public lasting less than 1 to 2 minutes with spontaneous resolution. The patient has compliance with his medication regimen. He ge nerally has breakthrough seizures approximately 1-2 times per month. Last breakthrough seizure was approximately 2 to 3 weeks ago. This was consistent with his general seizures. No recent fevers or illness falls or trauma. The patient has since returned to baseline though he is somewhat tired and does have a mild frontal headache. ROS All systems reviewed and are negative except as per history of present illness. Medications Home Meds Active Scripts Amoxicillin/Potassium Clav (Amox-Clav 875-125 mg Tablet) 875-125 mg Tab, 875 MG PO BID for 5 Days, TAB Prov:CARMENZA NIELSON MD 06/10/18 Levetiracetam* (Keppra*) 750 Mg Tablet, 1500 MG PO BID for 30 Days, TAB Prov:CARMENZA NIELSON MD 06/10/18 Reported Medications Oxcarbazepine* (Oxcarbazepine*) 600 Mg Tablet, 600 MG PO BID, #60 TAKE 1 TABLET BY MOUTH TWICE A DAY 03/24/18 Allergies Allergies: Coded Allergies: No Known Drug Allergies (Unverified Allergy, Unknown, 06/06/18) PMhx/Soc History of Surgery: Yes (brain surgery 87) Anesthesia Reaction: No Hx Neurological Disorder: Yes (hx of seizures) Hx Respiratory Disorders: No Hx Cardiac Disorders: Yes (hx of high cholesterol) Hx Psychiatric Problems: Yes (depression) Hx Miscellaneous Medical Probl: No Hx Alcohol Use: No Hx Substance Use: No (FAMILY DENIES) Hx Tobacco Use: Yes FmHx Family History: No diabetes Physical Exam Vitals Vital Signs Date Temp Pulse Resp B/P (MAP) Pulse Ox O2 O2 Flow FiO2 Time Delivery Rate 07/25/18 98.1 80 18 126/67 99 17:03 (86) Physical Exam General:, Ambulatory with steady gait well developed, well nourished, no acute distress Head: Normocephalic, atraumatic. Eyes: Pupils equally reactive, EOM intact ENT: Moist mucous membranes Neck: Supple, no lymphadenopathy Respiratory: Lungs clear bilaterally, no distress Cardiovascular: RRR, no murmurs, rubs, or gallops Abdominal: Soft, non-tender, non-distended, no peritoneal signs : Deferred MSK: No edema, no unilateral swelling, 5/5 strength Neurologic: Alert and oriented, moving all extremities, normal speech, no focal weakness, no cerebellar signs Skin: No rash Psych: Normal mood Results 24 hrs Laboratory Tests Test 07/25/18 17:21 Bedside Glucose 139 mg/dL Current Medications Medications Dose Sig/Idris Start Time Status Last (Trade) Ordered Route PRN Stop Time Admin Dose Reason Admin Lorazepam 1 mg ONCE ONCE 07/25/18 DC (Ativan) PO 17:30 07/25/18 17:31 650 mg ONCE ONCE 07/25/18 DC Acetaminophen PO 17:30 (Tylenol 07/25/18 17:31 Tab) Procedures/MDM LAB INTERPRETATION: I reviewed the laboratory testing and it shows [no evidence of acute process] MEDICAL DECISION MAKING: The patient had his regular generalized tonic-clonic seizure with spontaneous resolution and has since returned to baseline. Only single seizure. Last seizure was approximately 2 to 3 weeks ago. This is very consistent with his regular breakthrough seizure. The patient seizure occurred approximately 2 hours ago and again he has returned to baseline. His Accu-Chek is normal. Patient does have a mild headache but this is consistent with prior seizures. No signs or symptoms concerning for infection or infarction or acute intracranial process. Laboratory testing or diagnostic imaging is not necessary. The patient's medications do not have stat levels to be checked for therapeutic level in the blood. I had a prolonged in-depth conversation with the patient and family member. The patient's family member was demanding that he be admitted for monitoring. However based on prolonged conversation this is very consistent with his regular breakthrough seizure at regular interval and the patient only had a single seizure today and has since returned to baseline. I explained to her that this is consistent with a normal breakthrough seizure in the standard of care would be reassurance and follow-up on an outpatient with primary care provider as well as neurologist. There are no levels to check. His Accu-Chek is normal the patient was given Tylenol and Ativan. In the end reassurance has been provided. She states that her main concern is that he has a seizure in public and would like assistance getting home. A taxi voucher was provided. Again, the patient is at his baseline. He is now had greater than 2 hours of observation since last seizure. No indication for CT imaging or laboratory testing. Patient given oral benzodiazepine for seizure prophylaxis and he can continue his regular home regimen. DISPOSITION PLAN: The patient does not have an identifiable emergent medical condition that warrants inpatient hospitalization at this time. The patient is deemed safe for discharge with outpatient follow-up. We discussed follow up with the patient's primary care doctor within 24 to 48 hours as needed. We also discussed return to the emergency room for worsening symptoms or worsening condition. Outpatient referral: Neurology Departure Diagnosis: Primary Impression: Breakthrough seizure Condition: Stable Patient Instructions: Seizure, Recurrent [Adult] [facility]errals[facility] Usted se bryan hecho un examen mdico de control que le indica que no est en elodia condicin que requiera tratamiento urgente en el Departamento de Emergencia. Un estudio ms profundo y el tratamiento de dietrich condicin pueden esperar sin ningn riesgo hasta que usted sea atendida/o en el consultorio de dietrich mdico o elodia clnica. Es responsabilidad suya arreglar elodia mark para el seguimiento del amairani. MANEJO DE CONDICIONES NO URGENTES EN EL FUTURO 1) Si usted tiene un mdico de atencin primaria: Usted debera llamar a dietrich mdico de atencin primaria antes de venir al departamento de emergencia. Despus de las horas de consultorio, dietrich doctor o dietrich asociado/a est disponible por telfono. El mdico o enfermero de sada en el servicio telefnico puede asesorarle por gus medio para atender el problema, o amairani contrario se puede programar elodia mark. 2) Si usted no tiene un mdico de atencin primaria: Llame al mdico o clnica de referencia que aparece abajo kierra las horas de consultorio para hacer elodia mark para que le vean. CLINICAS: [facility] [phone] [facility] [phone] [facility] [phone] [facility] [phone] [place] [id number] [phone] [facility]. [phone] [facility]. [facility] () Usted se bryan hecho un examen mdico de control que le indica que no est en elodia condicin que requiera tratamiento urgente en el Departamento de Emergencia. Un estudio ms profundo y el tratamiento de dietrich condicin pueden esperar sin ningn riesgo hasta que usted sea atendida/o en el consultorio de dietrich mdico o elodia clnica. Es responsabilidad suya arreglar elodia mark para el seguimiento del amairani. MANEJO DE CONDICIONES NO URGENTES EN EL FUTURO 1) Si usted tiene un mdico de atencin primaria: Usted debera llamar a dietrich mdico de atencin primaria antes de venir al departamento de emergencia. Despus de las horas de consultorio, dietrich doctor o dietrich asociado/a est disponible por telfono. El mdico o enfermero de sada en el servicio telefnico puede asesorarle por gus medio para atender el problema, o amairani contrario se puede programar elodia mark. 2) Si usted no tiene un mdico de atencin primaria: Llame al mdico o condado institucions de referencia que aparece abajo kierra las horas de consultorio para hacer elodia mark para que le vean. SI USTED NO PUEDE PAGAR PARA RONEY UN MEDICO puede ir a: [facility] [address] [place] [address] [facility] [address] [place] [address] [facility] [address] [place] [address] [facility] [address] [place] [place], [place] [id number] Additional Instructions: Return for recurrent seizure. Seizure that is abnormal and not consistent with baseline. Take medications as directed. Follow-up with primary care physician and neurologist as soon as possible. Llame al doctor MAANA y kimberly elodia MARK PARA DENTRO DE 2-3 DESAI.Dgale a la secretaria que nosotros le instruimos hacer esta mark.Avise o llame si dietrich condicin se empeora antes de la mark. Regresa aqui si peor o no mejor. ASAD TERRELL MD July 25, 2018 17:37
== END 2018-07-25 18:02 | disposition home or self-care (01) ==
LOC: E/R 16:59
DX: G40.909 Epilepsy, unspecified, not intractable, without status epilepticus (principal); R40.2142 Coma scale, eyes open, spontaneous, at arrival to emergency department; R40.2252 Coma scale, best verbal response, oriented, at arrival to emergency department; R40.2362 Coma scale, best motor response, obeys commands, at arrival to emergency department; Z87.891 Personal history of nicotine dependence
CPT/HCPCS: 82962; Z7502; Z7610; 99283

== ENCOUNTER 2018-08-16 23:30 | Emergency (ER) | payer OTHER ==
[~2018-08-16] VITALS: Ht 172.7 cm; Wt 78.9 kg
[2018-08-16 23:53] VITALS: Ht 172.7 cm; Wt 78.9 kg
[2018-08-17] MEDS ORDERED: SOD CHLORIDE 0.9% 500 ML IV STA (00:05)
[2018-08-17] MEDS ORDERED: LEVETIRACETAM 500 MG (PMX) 100 ML IVPB ONE (00:30)
[2018-08-17] MEDS ORDERED: LORAZEPAM 2 MG INJ IV ONE (00:30)
[2018-08-17 02:09] VITALS: BP 112/71; PULSE 69; RESP 18
--- NOTE | 2018-08-17 02:09 | ERD ---
ER Documentation Chief Complaint Chief Complaint states had a seizure about 1 hour ago, hx of seizure. aox4 in triage HPI Is a 48-year-old male with history of seizure disorder states he had a seizure about 1 hour ago. Denies any tongue biting or incontinence. Has a history of seizures. Last seizure breakthrough was a few weeks ago. This is normal for him. States compliant with medications. ROS All systems reviewed and are negative except as per history of present illness. Medications Home Meds Active Scripts Amoxicillin/Potassium Clav (Amox-Clav 875-125 mg Tablet) 875-125 mg Tab, 875 MG PO BID for 5 Days, TAB Prov:CARMENZA NIELSON MD 06/10/18 Levetiracetam* (Keppra*) 750 Mg Tablet, 1500 MG PO BID for 30 Days, TAB Prov:CARMENZA NIELSON MD 06/10/18 Reported Medications Oxcarbazepine* (Oxcarbazepine*) 600 Mg Tablet, 600 MG PO BID, #60 TAKE 1 TABLET BY MOUTH TWICE A DAY 03/24/18 Allergies Allergies: Coded Allergies: No Known Drug Allergies (Unverified Allergy, Unknown, 06/06/18) PMhx/Soc History of Surgery: Yes (brain sx 1988,cholecystectomy,appendectomy) Anesthesia Reaction: No Hx Neurological Disorder: Yes (seizures) Hx Respiratory Disorders: No Hx Cardiac Disorders: Yes (hypercholesteremia) Hx Psychiatric Problems: Yes (depression) Hx Miscellaneous Medical Probl: No Hx Alcohol Use: No Hx Substance Use: No (FAMILY DENIES) Hx Tobacco Use: No Smoking Status: Never smoker Physical Exam Vitals Vital Signs Date Temp Pulse Resp B/P (MAP) Pulse Ox O2 O2 Flow FiO2 Time Delivery Rate 08/17/18 60 18 112/71 100 Room Air 01:10 (85) 08/16/18 97.7 59 18 118/79 100 23:53 (92) Physical Exam Const: No acute distress Head: Atraumatic Eyes: Normal Conjunctiva ENT: Normal External Ears, Nose and Mouth. Neck: Full range of motion. No meningismus. Resp: Clear to auscultation bilaterally Cardio: Regular rate and rhythm, no murmurs Abd: Soft, non tender, non distended. Normal bowel sounds Skin: No petechiae or rashes Back: No midline or flank tenderness Ext: No cyanosis, or edema Neur: Awake and alert Psych: Normal Mood and Affect Result Diagram: 08/17/18 0024 08/17/18 0024 Results 24 hrs Laboratory Tests Test 08/17/18 00:24 White Blood Count 5.3 10^3/ul Red Blood Count 4.50 10^6/ul Hemoglobin 14.2 g/dl Hematocrit 40.7 % Mean Corpuscular Volume 90.4 fl Mean Corpuscular Hemoglobin 31.6 pg Mean Corpuscular Hemoglobin Concent 34.9 g/dl Red Cell Distribution Width 12.4 % Platelet Count 193 10^3/UL Mean Platelet Volume 9.3 fl Immature Granulocytes % 0.200 % Neutrophils % 43.3 % Lymphocytes % 46.7 % Monocytes % 8.1 % Eosinophils % 1.1 % Basophils % 0.6 % Nucleated Red Blood Cells % 0.0 /100WBC Immature Granulocytes # 0.010 10^3/ul Neutrophils # 2.3 10^3/ul Lymphocytes # 2.5 10^3/ul Monocytes # 0.4 10^3/ul Eosinophils # 0.1 10^3/ul Basophils # 0.0 10^3/ul Nucleated Red Blood Cells # 0.0 10^3/ul Prothrombin Time 12.5 Sec Prothrombin Time Ratio 1.0 INR International Normalized Ratio 0.92 Activated Partial Thromboplast Time 33.8 Sec Sodium Level 141 mmol/L Potassium Level 3.8 mmol/L Chloride Level 107 mmol/L Carbon Dioxide Level 26 mmol/L Anion Gap 8 Blood Urea Nitrogen 13 mg/dl Creatinine 0.80 mg/dl Est Glomerular Filtrat Rate mL/min > 60 mL/min Glucose Level 95 mg/dl Calcium Level 9.2 mg/dl Total Bilirubin 0.3 mg/dl Direct Bilirubin 0.00 mg/dl Indirect Bilirubin 0.3 mg/dl Aspartate Amino Transf (AST/SGOT) 24 IU/L Alanine Aminotransferase (ALT/SGPT) 18 IU/L Alkaline Phosphatase 81 IU/L Total Protein 8.0 g/dl Albumin 4.5 g/dl Globulin 3.50 g/dl Albumin/Globulin Ratio 1.28 Lipase 187 U/L Current Medications Medications Dose Sig/Idris Start Time Status Last (Trade) Ordered Route PRN Stop Time Admin Dose Reason Admin Sodium 500 ml @ Q1H STAT 08/17/18 DC 08/17/18 Chloride 500 mls/hr IV 00:05 00:44 08/17/18 01:04 Lorazepam 1 mg ONCE ONCE 08/17/18 DC 08/17/18 (Ativan) IV 00:30 00:45 08/17/18 00:31 100 ml @ ONCE ONCE 08/17/18 DC 08/17/18 Levetiracetam 400 mls/hr IVPB 00:30 00:44 08/17/18 00:44 Procedures/MDM Medical decision making: Patient here essentially for recurrent seizure disorder. Stable for outpatient management. Advise follow-up with primary care physician. Departure Diagnosis: Primary Impression: Seizure disorder Condition: Stable Patient Instructions: Seizure, Recurrent [Adult] SAMSON KELLY Aug 17, 2018 02:09
== END 2018-08-17 02:17 | disposition home or self-care (01) ==
LOC: E/R 23:30
DX: G40.909 Epilepsy, unspecified, not intractable, without status epilepticus (principal)
CPT/HCPCS: 36415; 80053; 83690; 85025; 85610; 85730; 96365; 96375; J1953; J2060; J7040; Z7502; Z7610

== ENCOUNTER 2018-10-04 07:03 | Emergency (ER) | payer OTHER ==
[~2018-10-04] VITALS: Ht 172.7 cm; Wt 77.7 kg
[~2018-10-04 07:03] MED LIST changes: +IBUP-1542 PO
[2018-10-04 07:09] VITALS: Ht 172.7 cm; Wt 77.7 kg
--- NOTE | 2018-10-04 07:54 | ERD ---
ER Documentation Chief Complaint Chief Complaint seizure witnessed by mom this am; pain at back; a/ox4 HPI This is a 48-year-old man initially brought in by mom for cough and nasal congestion x2 days although upon further questioning patient states he is here because he had tonic-clonic seizure activity this morning despite using his medications as prescribed. Patient has at least one breakthrough seizure per month and denies any obvious precipitating factors. Patient denies tongue injury and has had no loss of bowel or bladder control. Patient denies chest pain or shortness of breath, no fevers or chills, no vomiting or diarrhea. ROS All systems reviewed and are negative except as per history of present illness. Medications Home Meds Active Scripts Ibuprofen* (Motrin*) 600 Mg Tab, 600 MG PO Q8 PRN for PAIN, #30 TAB Prov:FLORINDA LAY MD 10/04/18 Levetiracetam* (Keppra*) 750 Mg Tablet, 1500 MG PO BID for 30 Days, TAB Prov:CARMENZA NIELSON MD 06/10/18 Reported Medications Oxcarbazepine* (Oxcarbazepine*) 600 Mg Tablet, 600 MG PO BID, #60 TAKE 1 TABLET BY MOUTH TWICE A DAY 03/24/18 Allergies Allergies: Coded Allergies: No Known Drug Allergies (Unverified Allergy, Unknown, 06/06/18) PMhx/Soc Seizure disorder History of Surgery: Yes (brain sx 1988,cholecystectomy,appendectomy) Anesthesia Reaction: No Hx Neurological Disorder: Yes (seizures) Hx Respiratory Disorders: No Hx Cardiac Disorders: Yes (hypercholesteremia) Hx Psychiatric Problems: Yes (depression) Hx Miscellaneous Medical Probl: No Hx Alcohol Use: No Hx Substance Use: No (FAMILY DENIES) Hx Tobacco Use: No FmHx Family History: No diabetes Physical Exam Vitals Vital Signs Date Temp Pulse Resp B/P (MAP) Pulse Ox O2 O2 Flow FiO2 Time Delivery Rate 10/04/18 98.6 86 18 111/62 98 07:09 (78) Physical Exam GENERAL: Well-developed, well-nourished, well-hydrated, in no apparent distress, looks nontoxic in appearance HEENT: Moist mucous membranes, pink conjunctiva, no cervical spine tenderness or step-off deformities, no goiter, no jaundice or icterus, extraocular movements intact without pain. No submandibular induration, and no pharyngeal erythema NEURO: Alert and oriented 3, cranial nerves II through XII intact bilaterally, pupils equal round reactive to light, no focal deficits or facial asymmetry, sensation intact distally Strength 5/5 in upper and lower extremities bilaterally CARDIAC: Regular rate and rhythm, no murmurs rubs or gallops LUNGS: Clear bilaterally no wheezing crackles or stridor ABDOMEN: Soft nontender, no guarding, no rigidity, no rebound, no psoas sign no obturator sign. Normoactive bowel sounds SKIN: Warm and dry to touch, no abrasions, contusions, or hematomas, no lacerations, no ecchymosis, no target lesions, and without ulcers EXTREMITIES: No clubbing cyanosis or edema, calves are bilaterally symmetrical, no Homans sign, no popliteal cord sign. Distal pulses equal and bilateral PSYCH: Normal affect without agitation or irritability Results 24 hrs Current Medications Medications Dose Sig/Idris Start Time Status Last (Trade) Ordered Route PRN Stop Time Admin Dose Reason Admin 1,000 mg ONCE ONCE 10/04/18 DC 10/04/18 Levetiracetam PO 08:00 10/04/18 08:05 (Keppra) 08:01 Procedures/MDM I administered Keppra 1 g p.o. Patient states he has his medications at home and I recommended he use them as prescribed including this morning's dose. Patient has no concerning points on history and physical and can be managed as an outpatient. Differential diagnoses considered, included but not limited to acute coronary syndrome, pulmonary embolism, aortic dissection, abdominal aortic aneurysm, sepsis, stroke, meningitis, encephalitis, pneumonia, appendicitis, cholecystitis, bowel obstruction, pyelonephritis, nephrolithiasis, cystitis, as well as metabolic, hematologic, and electrolyte abnormalities. As well as abscess, cellulitis, fractures, and dislocations. Patient feels much better at this time, and vital signs are normal, symptoms have improved. I did give strict instructions to return to the ED if symptoms continue or worsen, patient will otherwise follow-up with primary care physician. Patient understood instructions and agreed to plan. Disclaimer: Inadvertent spelling and grammatical errors are likely due to EHR/dictation software use and do not reflect on the overall quality of patient care. Also, please note that the electronic time recorded on this note does not necessarily reflect the actual time of the patient encounter. Departure Diagnosis: Primary Impression: Breakthrough seizure Additional Impression: Acute URI Condition: Good Patient Instructions: Seizure, Recurrent [Adult], Uri, Viral, No Abx (Adult) FLORINDA LAY MD Oct 04, 2018 07:54
[2018-10-04] MEDS ORDERED: LEVETIRACETAM 500 MG TAB PO ONE (08:00)
[2018-10-04 10:00] VITALS: BP 120/74; PULSE 83; RESP 16
== END 2018-10-04 10:00 | disposition home or self-care (01) ==
LOC: E/R 07:03
DX: G40.909 Epilepsy, unspecified, not intractable, without status epilepticus (principal); J06.9 Acute upper respiratory infection, unspecified
CPT/HCPCS: Z7502; Z7610; 99283